=== PATIENT | male | born 1960 | race Caucasian/White ===

== ENCOUNTER 2016-12-03 11:55 | Emergency (ER) | payer OTHER ==
[~2016-12-03] VITALS: Ht 182.9 cm; Wt 123.3 kg
[~2016-12-03 11:55] MED LIST: AMLODIPINE-VAL1 EAC3 PO; CELECOXIB200 MG PO; FLEXERIL10 MG PO; KEFLEX500 MG PO; NAPROXEN500 MG PO
[2016-12-03 13:16] LABS: ADD MIUA? NO; BILIRUBIN NEGATIVE; BLOOD NEGATIVE; COLOR YELLOW ((YELLOW)); GLUCOSE (STRIP) NEGATIVE; KETONES NEGATIVE; LEUKOCYTES NEGATIVE; NITRITE NEGATIVE; PROTEIN (STRIP) 30; SPECIFIC GRAVITY 1.024 (1.000-1.030); UCUL ADDED? NO; UROBILINOGEN 0.2 MG/DL (0.2-1.0)
[2016-12-03 13:23] LABS: CHLORIDE 107 mEq/L (99-109); POTASSIUM 3.9 mEq/L (3.7-5.4); SODIUM 140 mEq/L (136-147)
[2016-12-03 13:25] LABS: HEMATOCRIT 45.3 % (38.0-50.0); MCH 30.6 PG (29.0-34.0); MCHC 34.9 G/DL (30.0-36.0); MCV 87.8 FL (86-99); MEAN PLAT.VOLUME 10.5 uM^3 (9.0-12.4); PLATELET COUNT 215 K/uL (156-360); RBC DIS.WIDTH-SD 38.7 % (39-53); RED BLOOD COUNT 5.16 M/uL (4.00-5.50)
[2016-12-03 13:26] LABS: GLUCOSE 169 mg/dL (70-99)
[2016-12-03 13:27] LABS: ANION GAP 10 MEQ/L (2-14)
[2016-12-03 13:28] LABS: TOTAL BILIRUBIN 0.7 mg/dL (0.0-1.0)
[2016-12-03 13:29] LABS: ALKALINE PHOSPHATASE 71 IU/L (3-129); GFR ESTIMATE (CALCULATED) > 59 mL/min/
[2016-12-03 13:30] LABS: UREA NITROGEN (BUN) 28 mg/dL (9-23)
[2016-12-03 13:32] LABS: TROP-I INTERPRETATION NEGATIVE; TROPONIN-I < 0.01 ng/mL (0.0-0.30); WHITE BLOOD COUNT 10.8 K/uL (4.1-10.2)
[2016-12-03 15:26] LABS: TROP-I INTERPRETATION NEGATIVE; TROPONIN-I < 0.01 ng/mL (0.0-0.30)
[2016-12-03] MEDS ORDERED: ANTIVERT25 MG PO (15:34)
[2016-12-03 19:02] VITALS: BP 146/85
== END 2016-12-03 19:24 | disposition home or self-care (01) ==
LOC: EME 11:55
PROVIDERS: Physician Assistant
DX: R42 Dizziness and giddiness (principal); R11.2 Nausea with vomiting, unspecified; R51 Headache; I45.10 Unspecified right bundle-branch block; I10 Essential (primary) hypertension; J45.909 Unspecified asthma, uncomplicated; Z87.891 Personal history of nicotine dependence
CPT/HCPCS: 70450; 70551; 71020; 80053; 81003; 84484; 85027; 93005; 99281; 99285

== ENCOUNTER 2017-10-07 20:03 | Observation (INO) | payer OTHER ==
[~2017-10-07] VITALS: Ht 182.9 cm; Wt 129.5 kg
[~2017-10-07 20:03] MED LIST changes: +ANTIVERT25 MG PO
[2017-10-07 21:24] LABS: HEMOGLOBIN 15.7 G/DL (12.5-16.6); MCH 31.1 PG (29.0-34.0); MCHC 35.7 G/DL (30.0-36.0); MCV 87.1 FL (86-99); PLATELET COUNT 230 K/uL (156-360); RBC DIS.WIDTH-CV 12.2 % (11.8-14.6); RBC DIS.WIDTH-SD 39.2 % (39-53); RED BLOOD COUNT 5.05 M/uL (4.00-5.50); WHITE BLOOD COUNT 8.2 K/uL (4.1-10.2)
[2017-10-07 21:25] LABS: APPEARANCE CLEAR ((CLEAR)); BILIRUBIN NEGATIVE; BLOOD NEGATIVE; COLOR STRAW ((YELLOW)); GLUCOSE (STRIP) NEGATIVE; KETONES NEGATIVE; LEUKOCYTES NEGATIVE; NITRITE NEGATIVE; PROTEIN (STRIP) NEGATIVE; SPECIFIC GRAVITY 1.013 (1.000-1.030); UCUL ADDED? NO; UROBILINOGEN 0.2 MG/DL (0.2-1.0)
[2017-10-07 21:39] LABS: CHLORIDE 107 mEq/L (99-109); POTASSIUM 4.2 mEq/L (3.7-5.4); SODIUM 141 mEq/L (136-147)
[2017-10-07 21:41] LABS: GLUCOSE 90 mg/dL (70-99)
[2017-10-07 21:45] LABS: GFR ESTIMATE (CALCULATED) > 59 mL/min/ (58.99-99999)
[2017-10-07 21:46] LABS: UREA NITROGEN (BUN) 19 mg/dL (9-23)
[2017-10-07 21:47] LABS: TROP-I INTERPRETATION NEGATIVE; TROPONIN-I < 0.01 ng/mL (0.0-0.30)
[2017-10-07] MEDS ORDERED: FLUTICASONE PRO16 GM BOTH NARES (23:32)
[2017-10-07] MEDS ORDERED: APTIOM400 MG PO (23:32)
[2017-10-07] MEDS ORDERED: CO Q-10100 MG PO (23:37)
[2017-10-07] MEDS ORDERED: ADULT ASPIRIN R81 MG PO (23:37)
[2017-10-08 00:01] LABS: D-DIMER ELISA < 150.00 ng/mLDDU (<230)
[2017-10-08 00:04] LABS: MAGNESIUM 2.2 mg/dL (1.3-2.7)
[2017-10-08 02:21] VITALS: BP 132/74
[2017-10-08 06:12] LABS: TROP-I INTERPRETATION NEGATIVE; TROPONIN-I < 0.01 ng/mL (0.0-0.30)
[2017-10-08 08:03] VITALS: BP 135/90
[2017-10-08 10:28] LABS: TROP-I INTERPRETATION NEGATIVE; TROPONIN-I 0.01 ng/mL (0.0-0.30)
[2017-10-08] MEDS ORDERED: FAMOTIDINE20 MG PO (10:49)
[2017-10-08 10:50] VITALS: BP 141/85
== END 2017-10-08 11:16 | disposition home or self-care (01) ==
LOC: EME 20:03 → EDOF 10-08 00:20 → ENRESERV 10-08 00:21 → 5WEST 10-08 02:07
PROVIDERS: Hospitalist; Physician Assistant
DX: R07.89 Other chest pain (principal); I10 Essential (primary) hypertension; Z87.891 Personal history of nicotine dependence; E78.00 Pure hypercholesterolemia, unspecified; E78.5 Hyperlipidemia, unspecified; J45.909 Unspecified asthma, uncomplicated; Z68.38 Body mass index [BMI] 38.0-38.9, adult; E66.01 Morbid (severe) obesity due to excess calories; Z88.5 Allergy status to narcotic agent
CPT/HCPCS: 71046; 80048; 81003; 83735; 84484; 85027; 85379; 93005; 99281; 99285; G0378